=== PATIENT | female | born 1970 | race American Indian/Alaskan Native ===

== ENCOUNTER 2017-06-01 19:26 | Emergency (ER) | payer SELFPAY ==
[2017-06-01 20:17] LABS: Mean Corpuscular HGB Conc 28 % (30-34); Platelet Count 308 K/mm3 (140-440); Red Blood Count 3.81 M/mm3 (3.65-5.03); White Blood Count 4.6 K/mm3 (4.5-11.0)
[2017-06-01 20:34] LABS: Hematocrit 21.4 % (30.3-42.9); Mean Corpuscular Hemoglobin 16 pg (28-32); Mean Corpuscular Volume 56 fl (79-97); Red Cell Distribution Width 20.2 % (13.2-15.2)
[2017-06-01 20:47] LABS: Anion Gap 16 mmol/L; BUN/Creatinine Ratio 16; Blood Urea Nitrogen 11 mg/dL (7-17); Calcium 9.2 mg/dL (8.4-10.2); Carbon Dioxide 27 mmol/L (22-30); Chloride 102.7 mmol/L (98-107); Glucose 97 mg/dL (65-100); Potassium 3.9 mmol/L (3.6-5.0); Sodium 142 mmol/L (137-145)
--- NOTE | 2017-06-02 01:47 | Emergency Department Report ---
ED Dizziness HPI - General Chief Complaint: Dizziness Stated Complaint: headache,dizziness Time Seen by Provider: 06/02/17 00:56 Source: patient Mode of arrival: Ambulatory Limitations: No Limitations - History of Present Illness Initial Comments: 46-year-old female with a past medical history of iron deficiency anemia presents to the Hospital complaining of hot and cold flashes, and intermittent spinning sensation 5 days. Patient complains of frontal headache and cold symptoms. Patient was seen and evaluated at [facility] 5 days ago for same symptoms. No labs obtained. Patient denies heavy vaginal bleeding, melena, hematochezia, fever, or shortness of breath. Constant aching left-sided chest pain reported. History of blood transfusion in the past secondary to bleeding fibroids. Patient had fibroid surgery. Patient takes multivitamins with iron for iron deficiency anemia. - Related Data Previous Rx's Medication Instructions Recorded Last Taken Type Docusate Sodium [Colace] 100 mg PO BID PRN #30 capsule 06/02/17 Unknown Rx Ferrous Sulfate [Feosol 325 MG tab] 325 mg PO TID #60 tablet 06/02/17 Unknown Rx Allergies Allergy/AdvReac Type Severity Reaction Status Date / Time aspirin AdvReac Hives Verified 06/01/17 19:51 ED Review of Systems ROS: Stated complaint: headache,dizziness Other details as noted in HPI Comment: All other systems reviewed and negative Other: Constitutional: No fevers chills Eyes: No eye pain visual changes ENT: No ear pain or throat pain Neck: Denies pain Respiratory: Denies wheezing Cardiovascular: Denies palpitations, syncope GI: Denies abdominal pain, nausea, vomiting, diarrhea : Denies dysuria Musculoskeletal: Denies back pain, joint swelling Skin: Denies rash, lesions, erythema Neurologic: Denies numbness, weakness Psychiatric: Denies suicidal ideation, hallucinations ED Past Medical Hx - Past Medical History Previous Medical History?: No - Surgical History Additional Surgical History: Fribroids Removal, - Social History Smoking Status: Never Smoker Substance Use Type: None - Medications Home Medications: Home Medications Medication Instructions Recorded Confirmed Last Taken Type Docusate Sodium [Colace] 100 mg PO BID PRN #30 capsule 06/02/17 Unknown Rx Ferrous Sulfate [Feosol 325 MG tab] 325 mg PO TID #60 tablet 06/02/17 Unknown Rx ED Physical Exam - General Limitations: No Limitations - Other Other exam information: General: No limitations, patient is alert in no acute distress Head exam: Atraumatic, normocephalic Eyes exam: Normal appearance, EOMI, no nystagmus ENT: Moist mucous membrane, normal oropharynx Neck exam: Normal inspection, full range of motion, no meningismus nontender Respiratory exam: Clear to auscultation bilateral, no wheezes, rales, crackles Cardiovascular: Normal rate and rhythm, normal heart sounds Abdomen: Soft, nondistended, and nontender, with normal bowel sounds, no rebound, or guarding Rectal: Guaiac-negative brown stool Extremity: Full range of motion normal inspection no deformity Back: Normal Inspection, full range of motion, no tenderness Neurologic: Alert, oriented x3, cranial nerves intact, no motor or sensory deficit Psychiatric: normal affect, normal mood Skin: Warm, dry, intact ED Course Vital Signs 06/01/17 06/02/17 06/02/17 19:32 00:08 00:59 Temperature 98.0 F 97.6 F Pulse Rate 77 86 Respiratory 18 14 Rate Blood Pressure 115/61 133/82 O2 Sat by Pulse 100 98 100 Oximetry 06/02/17 06/02/17 06/02/17 01:01 01:15 01:35 Temperature Pulse Rate 94 H 64 Respiratory 15 16 18 Rate Blood Pressure 107/69 107/69 O2 Sat by Pulse 100 100 Oximetry ED Medical Decision Making - Lab Data Result diagrams: 06/01/17 19:55 06/01/17 19:55 Lab Results 06/01/17 06/01/17 06/01/17 Range/Units 19:55 19:55 19:55 WBC 4.6 (4.5-11.0) K/mm3 RBC 3.81 (3.65-5.03) M/mm3 Hgb 6.0 L (10.1-14.3) gm/dl Hct 21.4 L (30.3-42.9) % MCV 56 L (79-97) fl MCH 16 L (28-32) pg MCHC 28 L (30-34) % RDW 20.2 H (13.2-15.2) % Plt Count 308 (140-440) K/mm3 Lymph % (Auto) 29.8 (13.4-35.0) % [place] % (Auto) 8.9 H (0.0-7.3) % Eos % (Auto) 2.0 (0.0-4.3) % Baso % (Auto) 1.0 (0.0-1.8) % Lymph # 1.4 (1.2-5.4) K/mm3 [place] # 0.4 (0.0-0.8) K/mm3 Eos # 0.1 (0.0-0.4) K/mm3 Baso # 0.0 (0.0-0.1) K/mm3 Seg Neutrophils % 58.3 (40.0-70.0) % Seg Neutrophils # 2.6 (1.8-7.7) K/mm3 Sodium 142 (137-145) mmol/L Potassium 3.9 (3.6-5.0) mmol/L Chloride 102.7 (98-107) mmol/L Carbon Dioxide 27 (22-30) mmol/L Anion Gap 16 mmol/L BUN 11 (7-17) mg/dL Creatinine 0.7 (0.7-1.2) mg/dL Estimated GFR > 60 ml/min BUN/Creatinine Ratio 16 % Glucose 97 (65-100) mg/dL Calcium 9.2 (8.4-10.2) mg/dL HCG, Qual Negative (Negative) - EKG Data -: EKG Interpreted by Me (nsr [id number]) EKG shows normal: sinus rhythm (63), axis (qrs 74), QRS complexes, ST-T waves ( nomral) Rate: normal - Medical Decision Making Patient's significant anemia likely caused her symptoms. Patient declines blood transfusion at this time. I informed patient of the risk of further drop in hemoglobin that can result in syncope, shortness of breath, chest pain, KS, and disability. Patient is agreeable to receiving a prescription for iron pills but refuses admission and blood infusion at this time - Differential Diagnosis vertigo, anemia, URI, sinusitis Critical Care Time: No Critical care attestation.: If time is entered above; I have spent that time in minutes in the direct care of this critically ill patient, excluding procedure time. ED Disposition Clinical Impression: Symptomatic anemia, Iron deficiency anemia Disposition: DC- LEFT AGAINST MED ADVICE Is pt being admited?: No Does the pt Need Aspirin: No Condition: Stable Instructions: Iron Deficiency Anemia (ED) Additional Instructions: Admission and blood transfusion was admitted today. You have refused admission and blood transfusion at this time. Your hemoglobin is very low (6) and can continue to drop which could lead to and disability. Please return if symptoms worsen as indicated by her discharge instructions. Take iron tablets as prescribed. Follow up with her primary care doctor for further treatment Prescriptions: Docusate Sodium [Colace] 100 mg PO BID PRN #30 capsule PRN Reason: Constipation Ferrous Sulfate [Feosol 325 MG tab] 325 mg PO TID #60 tablet Referrals: PRIMARY CARE, [Primary Care Provider] - 3-5 Days FELICIA AQUINO DO [Staff Physician] - 3-5 Days (real estate utilization officer) [facility] [Provider Group] - 3-5 Days (primary care clinic ) Forms: AMA Form Time of Disposition: 01:48
[2017-06-02 02:30] VITALS: BP 117/67
== END 2017-06-02 02:30 | disposition left against medical advice (07) ==
LOC: ED 19:26
DX: D50.9 Iron deficiency anemia, unspecified (principal); Z88.6 Allergy status to analgesic agent
CPT/HCPCS: 36415; 80048; 82271; 84703; 85025; 93005; 93010; 99283

== ENCOUNTER 2017-06-01 19:28 | Emergency (ER) | payer SELFPAY | END 2017-06-01 19:58 | disposition home or self-care (01) | LOC: ED 19:28 | DX: R42 Dizziness and giddiness (principal); Z53.21 Procedure and treatment not carried out due to patient leaving prior to being seen by health care provider ==

== ENCOUNTER 2017-08-12 21:46 | Emergency (ER) | payer SELFPAY ==
[2017-08-12 22:25] VITALS: BP 102/44
[2017-08-13 01:14] LABS: Basophils # (Auto) 0.1 K/mm3 (0.0-0.1); Basophils % (Auto) 1.7 % (0.0-1.8); Eosinophils # (Auto) 0.1 K/mm3 (0.0-0.4); Eosinophils % (Auto) 2.1 % (0.0-4.3); Lymphocytes # (Auto) 2.3 K/mm3 (1.2-5.4); Lymphocytes % (Auto) 43.1 % (13.4-35.0); Mean Corpuscular HGB Conc 28 % (30-34); Monocytes # (Auto) 0.4 K/mm3 (0.0-0.8); Monocytes % (Auto) 8.1 % (0.0-7.3); Platelet Count 290 K/mm3 (140-440); Red Blood Count 4.53 M/mm3 (3.65-5.03)
[2017-08-13 01:35] LABS: Hemoglobin 7.3 gm/dl (10.1-14.3)
[2017-08-13 01:36] LABS: Hematocrit 26.4 % (30.3-42.9); Mean Corpuscular Hemoglobin 16 pg (28-32); Mean Corpuscular Volume 58 fl (79-97); Red Cell Distribution Width 23.3 % (13.2-15.2)
[2017-08-13 04:35] LABS: Alanine Aminotransferase 11 units/L (7-56); Albumin 4.3 g/dL (3.9-5); BUN/Creatinine Ratio 14; Blood Urea Nitrogen 7 mg/dL (7-17); Calcium 8.7 mg/dL (8.4-10.2); Hemolysis Index 23; Lipase 70 units/L (13-60)
== END 2017-08-13 14:30 | disposition left against medical advice (07) ==
LOC: ED 21:46
DX: R10.9 Unspecified abdominal pain (principal); R42 Dizziness and giddiness; Z53.21 Procedure and treatment not carried out due to patient leaving prior to being seen by health care provider
CPT/HCPCS: 36415; 80053; 82962; 83690; 84703; 85025; 93005; 93010

== ENCOUNTER 2017-08-14 21:49 | Emergency (ER) | payer SELFPAY ==
[2017-08-14 22:11] VITALS: BP 104/67
[2017-08-14 23:18] LABS: Basophils # (Auto) 0.1 K/mm3 (0.0-0.1); Basophils % (Auto) 1.4 % (0.0-1.8); Eosinophils # (Auto) 0.1 K/mm3 (0.0-0.4); Eosinophils % (Auto) 2.5 % (0.0-4.3); Lymphocytes # (Auto) 1.7 K/mm3 (1.2-5.4); Lymphocytes % (Auto) 34.2 % (13.4-35.0); Mean Corpuscular HGB Conc 27 % (30-34); Monocytes # (Auto) 0.5 K/mm3 (0.0-0.8); Monocytes % (Auto) 10.2 % (0.0-7.3); Platelet Count 345 K/mm3 (140-440); Red Blood Count 4.48 M/mm3 (3.65-5.03)
[2017-08-14 23:19] LABS: Hematocrit 26.1 % (30.3-42.9); Hemoglobin 7.1 gm/dl (10.1-14.3)
[2017-08-14 23:20] LABS: Mean Corpuscular Hemoglobin 16 pg (28-32); Mean Corpuscular Volume 58 fl (79-97); Red Cell Distribution Width 23.6 % (13.2-15.2)
[2017-08-14 23:27] LABS: BUN/Creatinine Ratio 18; Blood Urea Nitrogen 11 mg/dL (7-17); Hemolysis Index 4
== END 2017-08-15 06:30 | disposition left against medical advice (07) ==
LOC: ED 21:49
DX: R42 Dizziness and giddiness (principal); Z53.21 Procedure and treatment not carried out due to patient leaving prior to being seen by health care provider
CPT/HCPCS: 36415; 80048; 85025; 93005; 93010

== ENCOUNTER 2021-12-03 23:01 | Emergency (ER) | payer SELFPAY ==
[2021-12-04 00:18] VITALS: BP 127/82
== END 2021-12-04 05:30 | disposition left against medical advice (07) ==
LOC: ED 23:01
DX: R07.89 Other chest pain (principal); Z53.21 Procedure and treatment not carried out due to patient leaving prior to being seen by health care provider

== ENCOUNTER 2021-12-04 19:05 | Emergency (ER) | payer SELFPAY ==
[2021-12-05] MEDS ORDERED: ACETAMINOPHEN 500 MG TAB PO ONE (04:19)
[2021-12-05 04:38] LABS: Eosinophils # (Auto) 0.1 K/mm3 (0.0-0.4); Eosinophils % (Auto) 2.7 % (0.0-4.3); Lymphocytes # (Auto) 1.8 K/mm3 (1.2-5.4); Lymphocytes % (Auto) 51.4 % (13.4-35.0); Mean Corpuscular HGB Conc 32 % (30-34); Mean Corpuscular Volume 91 fl (79-97); Monocytes # (Auto) 0.3 K/mm3 (0.0-0.8); Monocytes % (Auto) 9.6 % (0.0-7.3); Platelet Count 202 K/mm3 (140-440); Red Blood Count 4.18 M/mm3 (3.65-5.03); Red Cell Distribution Width 14.5 % (13.2-15.2)
[2021-12-05 05:00] LABS: Alanine Aminotransferase 13 units/L (7-56); Albumin 4.4 g/dL (3.9-5); Blood Urea Nitrogen 10 mg/dL (7-17); Calcium 9.7 mg/dL (8.4-10.2); Hemolysis Index 10
[2021-12-05 05:05] LABS: BUN/Creatinine Ratio 14
[2021-12-05 05:17] LABS: Bacteria,Urine 1+ /HPF (Negative); Bilirubin,Urine NEG (Negative); Blood,Urine NEG (Negative); Color,Urine Yellow (Yellow); Mucus,Urine 3+ /HPF; Protein,Urine <15 mg/dL mg/dL (Negative)
--- NOTE | 2021-12-05 05:55 | Emergency Department Report ---
ED General Adult HPI - General Chief complaint: Headache Stated complaint: LOSS APPETITE/HEADACHE/CP /BACK PAIN/DIZZY Source: patient Mode of arrival: Ambulatory Limitations: No Limitations - History of Present Illness Initial comments: Patient is a 51-year-old -L[place] female with no past medical history presents to the ED with complaint of acute onset persistent intermittent lower abdominal pain, urinary frequency and urgency and headache for the last 1 week. Patient denies dizziness, syncope, nausea and vomiting, vaginal bleeding, vaginal discharge, dysuria, low back pain, chest pain or shortness of breath. MD Complaint: Mild lower abdominal pain; headache, -: Gradual (2), week(s) (1) Location: abdomen (LOWER) Radiation: non-radiation Severity scale (0 -10): 5 Quality: aching Consistency: constant Improves with: none Worsens with: none Associated Symptoms: denies other symptoms. denies: confusion, chest pain, cough, diaphoresis, headaches, loss of appetite, malaise, nausea/vomiting, shortness of breath, syncope, weakness Treatments Prior to Arrival: none - Related Data Previous Rx's Medication Instructions Recorded Last Taken Type Docusate Sodium [Colace] 100 mg PO BID PRN #30 capsule 06/02/17 Unknown Rx Ferrous Sulfate [Feosol 325 MG tab] 325 mg PO TID #60 tablet 06/02/17 Unknown Rx Acetaminophen [Tylenol] 500 mg PO Q6HR PRN #24 tablet 12/05/21 Unknown Rx Sulfamethoxazole/Trimethoprim 1 each PO Q12H #20 tab 12/05/21 Unknown Rx [Bactrim DS TAB] Allergies Allergy/AdvReac Type Severity Reaction Status Date / Time aspirin AdvReac Hives Verified 06/01/17 19:51 ED Review of Systems ROS: Stated complaint: LOSS APPETITE/HEADACHE/CP /BACK PAIN/DIZZY Other details as noted in HPI Constitutional: denies: chills, fever Eyes: denies: eye pain, eye discharge, vision change ENT: denies: ear pain, throat pain Respiratory: denies: cough, shortness of breath, wheezing Cardiovascular: denies: chest pain, palpitations Endocrine: no symptoms reported Gastrointestinal: abdominal pain (LOWER). denies: nausea, vomiting, diarrhea, constipation, hematemesis Genitourinary: urgency, frequency. denies: dysuria, discharge Musculoskeletal: denies: back pain, joint swelling, arthralgia Skin: denies: rash, lesions Neurological: denies: headache, weakness, paresthesias Psychiatric: denies: anxiety, depression Hematological/Lymphatic: denies: easy bleeding, easy bruising ED Past Medical Hx - Past Medical History Previous Medical History?: No - Surgical History Past Surgical History?: Yes Additional Surgical History: Fibroidectomy - Social History Smoking Status: Never Smoker Substance Use Type: None - Medications Home Medications: Home Medications Medication Instructions Recorded Confirmed Last Taken Type Docusate Sodium [Colace] 100 mg PO BID PRN #30 capsule 06/02/17 Unknown Rx Ferrous Sulfate [Feosol 325 MG tab] 325 mg PO TID #60 tablet 06/02/17 Unknown Rx Acetaminophen [Tylenol] 500 mg PO Q6HR PRN #24 tablet 12/05/21 Unknown Rx Sulfamethoxazole/Trimethoprim 1 each PO Q12H #20 tab 12/05/21 Unknown Rx [Bactrim DS TAB] ED Physical Exam - General Limitations: No Limitations General appearance: alert, in no apparent distress - Head Head exam: Present: atraumatic, normocephalic, normal inspection - Eye Eye exam: Present: normal appearance, PERRL, EOMI Pupils: Present: normal accommodation - ENT ENT exam: Present: normal exam, normal orophraynx, mucous membranes moist, TM's normal bilaterally, normal external ear exam - Neck Neck exam: Present: normal inspection, full ROM. Absent: tenderness - Respiratory Respiratory exam: Present: normal lung sounds bilaterally. Absent: respiratory distress, wheezes, rales, rhonchi, chest wall tenderness, accessory muscle use, decreased breath sounds, prolonged expiratory - Cardiovascular Cardiovascular Exam: Present: regular rate, normal rhythm, normal heart sounds. Absent: systolic murmur, diastolic murmur, rubs, gallop - GI/Abdominal GI/Abdominal exam: Present: soft, normal bowel sounds. Absent: tenderness, rebound, hyperactive bowel sounds, hypoactive bowel sounds, organomegaly - Extremities Exam Extremities exam: Present: normal inspection, full ROM, normal capillary refill - Back Exam Back exam: Present: normal inspection, full ROM. Absent: tenderness, muscle spasm, paraspinal tenderness - Neurological Exam Neurological exam: Present: alert, oriented X3, CN II-XII intact, normal gait, reflexes normal - Psychiatric Psychiatric exam: Present: normal affect, normal mood, anxious - Skin Skin exam: Present: warm, dry, intact, normal color. Absent: rash ED Course Vital Signs 12/04/21 12/05/21 20:37 04:29 Temperature 98.9 F Pulse Rate 85 Respiratory 16 18 Rate Blood Pressure 119/76 O2 Sat by Pulse 99 Oximetry ED Medical Decision Making - Lab Data Result diagrams: 12/05/21 04:25 12/05/21 04:25 - Medical Decision Making This is a 51-year-old -L[place] female with no past medical history presents to the ED with complaint of acute onset persistent intermittent lower abdominal pain, urinary frequency and urgency and headache for the last 1 week. In the ED, patient is alert and oriented x3 and is not in any distress. Patient was treated for pain in the ED. Lab test results were reviewed and are all nonactionable except for urinalysis that showed significant urinary tract infection. Patient was therefore discharged home on medications and advised to follow-up with her primary care physician in 7 to 10 days for reevaluation or return to the ED immediately if symptoms get worse. - Differential Diagnosis UTI; muscle strain; uterine fibroids; constipation; Critical care attestation.: If time is entered above; I have spent that time in minutes in the direct care of this critically ill patient, excluding procedure time. ED Disposition Clinical Impression: Acute urinary tract infection Abdominal pain Qualifiers: Abdominal location: lower abdomen, unspecified Qualified Code(s): R10.30 - Lower abdominal pain, unspecified Tension type headache Qualifiers: Headache chronicity pattern: acute headache Intractability: not intractable Qualified Code(s): G44.209 - Tension-type headache, unspecified, not intractable Disposition: 01 HOME / SELF CARE / HOMELESS Is pt being admited?: No Does the pt Need Aspirin: No Condition: Stable Instructions: Abdominal Pain, Adult, [id number], Urinary Tract Infection, Adult, [id number], Tension Headache, Adult, [id number] Additional Instructions: All lab test results were reviewed and are all nonactionable. Urinalysis however showed acute urinary tract infection. Therefore take medication with food, drink plenty of fluids and follow-up with your primary care physician in 7 to 10 days for reevaluation. Return to the ED immediately if symptoms get worse. Prescriptions: Acetaminophen [Tylenol] 500 mg PO Q6HR PRN #24 tablet PRN Reason: Pain , Severe (7-10) Sulfamethoxazole/Trimethoprim [Bactrim DS TAB] 1 each PO Q12H #20 tab Referrals: [facility] [Provider Group] - 7-10 days Time of Disposition: 05:53 Print Language: ITALIAN
[2021-12-05 07:04] VITALS: BP 122/71
== END 2021-12-05 07:02 | disposition home or self-care (01) ==
LOC: ED 19:05
DX: N39.0 Urinary tract infection, site not specified (principal); G44.209 Tension-type headache, unspecified, not intractable; R10.30 Lower abdominal pain, unspecified; Z88.6 Allergy status to analgesic agent; Z88.5 Allergy status to narcotic agent; Z79.899 Other long term (current) drug therapy
CPT/HCPCS: 36415; 80053; 81001; 84703; 85025; 87086; 99283

== ENCOUNTER 2021-12-05 18:14 | Emergency (ER) | payer SELFPAY ==
[2021-12-05 20:54] VITALS: BP 115/69
== END 2021-12-06 01:00 | disposition left against medical advice (07) ==
LOC: ED 18:14
DX: R68.83 Chills (without fever) (principal); R51.9 Headache, unspecified; Z53.21 Procedure and treatment not carried out due to patient leaving prior to being seen by health care provider

== ENCOUNTER 2021-12-06 21:26 | Emergency (ER) | payer SELFPAY ==
[2021-12-06 23:19] VITALS: BP 145/88
== END 2021-12-07 08:25 | disposition left against medical advice (07) ==
LOC: ED 21:26
DX: R51.9 Headache, unspecified (principal); Z53.21 Procedure and treatment not carried out due to patient leaving prior to being seen by health care provider

== ENCOUNTER 2021-12-07 20:05 | Emergency (ER) | payer SELFPAY ==
[2021-12-08] MEDS ORDERED: dexAMETHasone 20 MG/5 ML VIAL IM ONE (01:01)
[2021-12-08] MEDS ORDERED: METOCLOPRAMIDE 10 MG TAB PO ONE (01:01)
[2021-12-08] MEDS ORDERED: diphenhydrAMINE 25 MG CAP PO ONE (01:01)
[2021-12-08] MEDS ORDERED: ACETAMINOPHEN 500 MG TAB PO ONE (01:01)
--- NOTE | 2021-12-08 02:46 | Emergency Department Report ---
ED Headache HPI - General Chief Complaint: Headache Stated Complaint: HEADACHE Time Seen by Provider: 12/08/21 01:00 - History of Present Illness Initial Comments: Patient 51-year-old female with history of headaches who presents with generalized body aches and headaches for the past 3 days intermittently. Pain max is 7/10. Pain is 4/10 today. There is some photophobia and nausea. However no fevers or chills. Patient denies other medical history. Allergies/Adverse Reactions: Allergies aspirin Adverse Reaction (Verified 12/06/21 23:19) Hives codeine Adverse Reaction (Verified 12/06/21 23:19) Unknown Home Medications: Ambulatory Orders Docusate Sodium [Colace] 100 mg PO BID PRN #30 capsule 06/02/17 Ferrous Sulfate [Feosol 325 MG tab] 325 mg PO TID #60 tablet 06/02/17 Sulfamethoxazole/Trimethoprim [Bactrim DS TAB] 1 each PO Q12H #20 tab 12/05/21 Acetaminophen [Acetaminophen TAB] 500 mg PO Q6HR PRN #24 tablet 12/08/21 diphenhydrAMINE [Benadryl CAP] 25 mg PO Q8HR PRN #30 capsule 12/08/21 ED Review of Systems ROS: Stated complaint: HEADACHE Other details as noted in HPI Comment: Unobtainable due to pts medical conditions Constitutional: no symptoms reported Eyes: denies: eye pain, eye discharge, vision change ENT: denies: ear pain, throat pain Respiratory: denies: cough, shortness of breath, wheezing Cardiovascular: denies: chest pain, palpitations Endocrine: no symptoms reported Gastrointestinal: abdominal pain, nausea. denies: vomiting, diarrhea, constipation, hematemesis, melena Genitourinary: denies: urgency, dysuria, frequency, hematuria, discharge Musculoskeletal: denies: back pain Skin: denies: rash, lesions Neurological: denies: headache, weakness, paresthesias, vertigo Psychiatric: denies: anxiety, depression Hematological/Lymphatic: as per HPI ED Past Medical Hx - Past Medical History Additional medical history: fibroids - Surgical History Additional Surgical History: Fibroidectomy - Social History Smoking Status: Never Smoker Substance Use Type: None - Medications Home Medications: Home Medications Medication Instructions Recorded Confirmed Last Taken Type Docusate Sodium [Colace] 100 mg PO BID PRN #30 capsule 06/02/17 Unknown Rx Ferrous Sulfate [Feosol 325 MG tab] 325 mg PO TID #60 tablet 06/02/17 Unknown Rx Sulfamethoxazole/Trimethoprim 1 each PO Q12H #20 tab 12/05/21 Unknown Rx [Bactrim DS TAB] Acetaminophen [Acetaminophen TAB] 500 mg PO Q6HR PRN #24 tablet 12/08/21 Unknown Rx diphenhydrAMINE [Benadryl CAP] 25 mg PO Q8HR PRN #30 capsule 12/08/21 Unknown Rx ED Physical Exam - General Limitations: No Limitations General appearance: alert, in no apparent distress - Head Head exam: Present: normocephalic, normal inspection - Eye Eye exam: Present: normal appearance, EOMI Pupils: Present: normal accommodation - ENT ENT exam: Present: normal exam, normal orophraynx, mucous membranes moist - Neck Neck exam: Present: normal inspection, tenderness, full ROM. Absent: lymphadenopathy - Respiratory Respiratory exam: Present: normal lung sounds bilaterally. Absent: respiratory distress, wheezes, stridor, chest wall tenderness - Cardiovascular Cardiovascular Exam: Present: regular rate, normal rhythm, normal heart sounds. Absent: systolic murmur, diastolic murmur, rubs, gallop - GI/Abdominal GI/Abdominal exam: Present: soft, normal bowel sounds, organomegaly. Absent: distended, guarding - Rectal Rectal exam: Present: deferred - Extremities Exam Extremities exam: Present: normal inspection, full ROM, normal capillary refill. Absent: tenderness - Back Exam Back exam: Present: normal inspection, full ROM. Absent: CVA tenderness (L) - Neurological Exam Neurological exam: Present: alert, oriented X3, CN II-XII intact, normal gait, reflexes normal - Psychiatric Psychiatric exam: Present: normal affect, normal mood - Skin Skin exam: Present: warm, dry, intact, normal color. Absent: rash ED Course Vital Signs 12/07/21 12/08/21 20:25 01:22 Temperature 98.4 F Pulse Rate 69 Respiratory 18 16 Rate Blood Pressure 112/72 O2 Sat by Pulse 100 Oximetry ED Medical Decision Making - Medical Decision Making Symptoms are improved with medications given in ED plan DC to home, follow-up with your doctor in 2 to 3 days. Return to emergency department should symptoms worsen. Critical care attestation.: If time is entered above; I have spent that time in minutes in the direct care of this critically ill patient, excluding procedure time. ED Disposition Clinical Impression: Headache Qualifiers: Headache type: unspecified Headache chronicity pattern: acute headache Intractability: intractable Qualified Code(s): R51.9 - Headache, unspecified URI (upper respiratory infection) Qualifiers: URI type: acute pharyngitis Pharyngitis/tonsillitis etiology: unspecified etiology Qualified Code(s): J02.9 - Acute pharyngitis, unspecified Disposition: 01 HOME / SELF CARE / HOMELESS Is pt being admited?: No Does the pt Need Aspirin: No Condition: Stable Instructions: Viral Respiratory Infection Additional Instructions: Take medications as prescribed, follow-up with your doctor in 2 to 3 days. Return to emergency department should symptoms worsen. Prescriptions: Acetaminophen [Acetaminophen TAB] 500 mg PO Q6HR PRN #24 tablet PRN Reason: Pain , Severe (7-10) diphenhydrAMINE [Benadryl CAP] 25 mg PO Q8HR PRN #30 capsule PRN Reason: nause and vomiting Referrals: LIONEL HAMPTON MD [Staff Physician] - 3-5 Days Forms: Work/School Release Form(ED) Time of Disposition: 02:57
[2021-12-08 03:08] VITALS: BP 108/70
== END 2021-12-08 03:49 | disposition home or self-care (01) ==
LOC: ED 20:05
DX: J06.9 Acute upper respiratory infection, unspecified (principal); R51.9 Headache, unspecified
CPT/HCPCS: 96372; 99282; J1100

== ENCOUNTER 2021-12-10 20:08 | Emergency (ER) | payer SELFPAY ==
[2021-12-10 21:08] VITALS: BP 131/56
== END 2021-12-10 22:00 ==
LOC: ED 20:08
DX: R42 Dizziness and giddiness (principal); R11.10 Vomiting, unspecified; R51.9 Headache, unspecified; Z53.21 Procedure and treatment not carried out due to patient leaving prior to being seen by health care provider

== ENCOUNTER 2021-12-15 21:53 | Emergency (ER) | payer SELFPAY ==
[2021-12-16 00:06] VITALS: BP 123/79
== END 2021-12-16 11:37 ==
LOC: ED 21:53
DX: R50.9 Fever, unspecified (principal); R51.9 Headache, unspecified; Z53.21 Procedure and treatment not carried out due to patient leaving prior to being seen by health care provider

== ENCOUNTER 2021-12-16 21:52 | Emergency (ER) | payer SELFPAY ==
[2021-12-16 22:54] VITALS: BP 113/64
== END 2021-12-16 23:45 | disposition left against medical advice (07) ==
LOC: ED 21:52
DX: R51.9 Headache, unspecified (principal); Z53.21 Procedure and treatment not carried out due to patient leaving prior to being seen by health care provider

== ENCOUNTER 2021-12-24 21:42 | Emergency (ER) | payer SELFPAY ==
[2021-12-24 23:29] VITALS: BP 114/66
[2021-12-25] LABS: Bilirubin,Urine NEG (Negative); Blood,Urine NEG (Negative); Color,Urine Yellow (Yellow); Mucus,Urine FEW /HPF; Protein,Urine <15 mg/dL mg/dL (Negative); RBC,Urine < 1.0 /HPF (0.0-6.0); Urobilinogen,Urine < 2.0 mg/dL (<2.0)
== END 2021-12-25 04:00 | disposition left against medical advice (07) ==
LOC: ED 21:42
DX: R10.9 Unspecified abdominal pain (principal); R19.7 Diarrhea, unspecified; Z53.21 Procedure and treatment not carried out due to patient leaving prior to being seen by health care provider
CPT/HCPCS: 81001

== ENCOUNTER 2021-12-28 20:21 | Emergency (ER) | payer SELFPAY ==
[2021-12-28 20:27] VITALS: BP 96/58
[2021-12-29 00:46] LABS: Basophils % (Auto) 0.7 % (0.0-1.8); Eosinophils # (Auto) 0.1 K/mm3 (0.0-0.4); Eosinophils % (Auto) 1.9 % (0.0-4.3); Hemoglobin 12.1 gm/dl (10.1-14.3); Lymphocytes # (Auto) 1.6 K/mm3 (1.2-5.4); Lymphocytes % (Auto) 35.3 % (13.4-35.0); Mean Corpuscular HGB Conc 34 % (30-34); Mean Corpuscular Volume 88 fl (79-97); Monocytes # (Auto) 0.5 K/mm3 (0.0-0.8); Monocytes % (Auto) 12.2 % (0.0-7.3); Platelet Count 200 K/mm3 (140-440); Red Blood Count 4.08 M/mm3 (3.65-5.03); Red Cell Distribution Width 14.6 % (13.2-15.2)
[2021-12-29 01:08] LABS: Alanine Aminotransferase 12 units/L (7-56); Albumin 4.5 g/dL (3.9-5); BUN/Creatinine Ratio 29; Blood Urea Nitrogen 23 mg/dL (7-17); Calcium 9.9 mg/dL (8.4-10.2); Hemolysis Index 6
[2021-12-29 01:09] LABS: Bilirubin,Direct < 0.2 mg/dL (0-0.2)
== END 2021-12-28 22:05 | disposition left against medical advice (07) ==
LOC: ED 20:21
DX: R10.9 Unspecified abdominal pain (principal); Z53.21 Procedure and treatment not carried out due to patient leaving prior to being seen by health care provider
CPT/HCPCS: 36415

== ENCOUNTER 2021-12-29 22:32 | Emergency (ER) | payer SELFPAY ==
[2021-12-30 01:08] VITALS: BP 124/62
== END 2021-12-30 15:31 | disposition left against medical advice (07) ==
LOC: ED 22:32
DX: R10.9 Unspecified abdominal pain (principal); R50.9 Fever, unspecified; Z53.21 Procedure and treatment not carried out due to patient leaving prior to being seen by health care provider

== ENCOUNTER 2022-01-03 20:12 | Emergency (ER) | payer SELFPAY ==
[2022-01-04 02:49] VITALS: BP 113/69
== END 2022-01-03 23:00 ==
LOC: ED 20:12
DX: R51.9 Headache, unspecified (principal); Z53.21 Procedure and treatment not carried out due to patient leaving prior to being seen by health care provider

== ENCOUNTER 2022-01-15 19:24 | Emergency (ER) | payer SELFPAY ==
[2022-01-15 20:29] VITALS: BP 94/56
--- NOTE | 2022-01-16 06:55 | Emergency Department Report ---
ED Female HPI - General Chief complaint: Urogenital-Female Stated complaint: DIZZY/HEADACHE Time Seen by Provider: 01/16/22 06:48 Source: patient Mode of arrival: Ambulatory Limitations: No Limitations - History of Present Illness Initial comments: 51-year-old female presents emergency department complaining of uterine swelling of unknown etiology although she does report being . States that although she is she is not sure why her uterus is swelling and she is also has been having some discharge that she would like to have addressed as well. Reports no fever, chills, sweats. No hemoptysis no hematemesis hematochezia, no diarrhea, no constipation, no pelvic trauma. She is not yet follow-up with an OPERATIONS PROGRAM MANAGER but is due to do so in the next few days. MD Complaint: vaginal discharge Location: suprapubic Radiation: suprapubic Severity: mild Consistency: constant Improves with: none Are you Now?: Yes - Related Data Previous Rx's Medication Instructions Recorded Last Taken Type Docusate Sodium [Colace] 100 mg PO BID PRN #30 capsule 06/02/17 Unknown Rx Ferrous Sulfate [Feosol 325 MG tab] 325 mg PO TID #60 tablet 06/02/17 Unknown Rx Sulfamethoxazole/Trimethoprim 1 each PO Q12H #20 tab 12/05/21 Unknown Rx [Bactrim DS TAB] Acetaminophen [Acetaminophen TAB] 500 mg PO Q6HR PRN #24 tablet 12/08/21 Unknown Rx Metoclopramide [Reglan] 10 mg PO TID #1 tab 12/08/21 Unknown Rx diphenhydrAMINE [Benadryl CAP] 25 mg PO Q8HR PRN #30 capsule 12/08/21 Unknown Rx clindamycin HCL [Clindamycin cap] 75 mg PO TID #21 cap 01/16/22 Unknown Rx Allergies Allergy/AdvReac Type Severity Reaction Status Date / Time cephalexin [From Keflex] Allergy Unknown Verified 12/10/21 03:26 doxycycline Allergy Dizziness Verified 12/28/21 20:26 aspirin AdvReac Hives Verified 12/06/21 23:19 codeine AdvReac Unknown Verified 12/06/21 23:19 ED Review of Systems ROS: Stated complaint: DIZZY/HEADACHE Other details as noted in HPI Comment: All other systems reviewed and negative ED Past Medical Hx - Past Medical History Additional medical history: fibroids - Surgical History Additional Surgical History: Fibroidectomy - Social History Smoking Status: Never Smoker Substance Use Type: None - Medications Home Medications: Home Medications Medication Instructions Recorded Confirmed Last Taken Type Docusate Sodium [Colace] 100 mg PO BID PRN #30 capsule 06/02/17 Unknown Rx Ferrous Sulfate [Feosol 325 MG tab] 325 mg PO TID #60 tablet 06/02/17 Unknown Rx Sulfamethoxazole/Trimethoprim 1 each PO Q12H #20 tab 12/05/21 Unknown Rx [Bactrim DS TAB] Acetaminophen [Acetaminophen TAB] 500 mg PO Q6HR PRN #24 tablet 12/08/21 Unknown Rx Metoclopramide [Reglan] 10 mg PO TID #1 tab 12/08/21 Unknown Rx diphenhydrAMINE [Benadryl CAP] 25 mg PO Q8HR PRN #30 capsule 12/08/21 Unknown Rx clindamycin HCL [Clindamycin cap] 75 mg PO TID #21 cap 01/16/22 Unknown Rx ED Physical Exam - General Limitations: No Limitations General appearance: alert, in no apparent distress - Head Head exam: Present: atraumatic, normocephalic - Eye Eye exam: Present: normal appearance, PERRL, EOMI Pupils: Present: normal accommodation - ENT ENT exam: Present: normal exam, normal orophraynx, mucous membranes moist, TM's normal bilaterally - Neck Neck exam: Present: normal inspection, full ROM - Respiratory Respiratory exam: Present: normal lung sounds bilaterally, chest wall tenderness. Absent: respiratory distress, wheezes, rales, rhonchi - Cardiovascular Cardiovascular Exam: Present: regular rate, normal rhythm. Absent: systolic murmur, diastolic murmur, rubs, gallop - GI/Abdominal GI/Abdominal exam: Present: soft, normal bowel sounds. Absent: distended, tenderness - Extremities Exam Extremities exam: Present: normal inspection - Back Exam Back exam: Present: normal inspection. Absent: CVA tenderness (R), CVA tenderness (L) - Neurological Exam Neurological exam: Present: alert, oriented X3, CN II-XII intact - Psychiatric Psychiatric exam: Present: normal affect, normal mood - Skin Skin exam: Present: warm, dry, intact, normal color. Absent: rash ED Course Vital Signs 01/15/22 19:36 Temperature 98.5 F Pulse Rate 81 Respiratory 18 Rate Blood Pressure 94/56 O2 Sat by Pulse 98 Oximetry ED Medical Decision Making - Medical Decision Making The patient is oriented to person, place, and time, has the capacity to make decisions regarding the medical care offered. The patient speaks coherently and exhibits no evidence of having an altered level of consciousness or alcohol or drug intoxication to a point that would impair judgment. They respond knowingly to questions about recommended treatment and alternate treatments including no further testing or treatment; participate in diagnostic and treatment decisions by means of rational thought processes; and understand the items of minimum basic medical treatment information with respect to that treatment (the nature and seriousness of the illness, the nature of the treatment, the probable degree and duration of any benefits and risks of any medical intervention that is being recommended, and the consequences of lack of treatment, and the nature, risks, and benefits of any reasonable alternatives). I have reviewed the relevant issues with the patient. They are aware of the suspected diagnosis suggested by screening exam, associated complications, based upon the initiated medical screening exam. The patient acknowledges understanding of the reasons for recommendations regarding medical treatment, medical testing, and further monitoring and observation. The recommended medical care being refused has been discussed with the patient and is labs to evaluate , ultrasound, vaginal swabs/urine. The risks of refusing recommended care that were disclosed and acknowledged by the patient are loss of current lifestyle, permanent mental impairment, and . The patient understands the relevant information of the nature of their medical condition, as well as the risks, benefits, and treatment alternatives (including non-treatment), consequences of refusing care, and can competently communicate a rational explanation about their choice of care options. [Discharge instructions were provided to the patient.] The patient understands they are welcome to return to the hospital at any time to receive the recommended care or any other care at any time, regardless of their ability to pay for such care. Critical care attestation.: If time is entered above; I have spent that time in minutes in the direct care of this critically ill patient, excluding procedure time. ED Disposition Clinical Impression: Unconfirmed , Vaginitis Disposition: HOME / SELF CARE / HOMELESS Is pt being admited?: No Does the pt Need Aspirin: No Condition: Stable Instructions: Vaginitis Prescriptions: clindamycin HCL [Clindamycin cap] 75 mg PO TID #21 cap Forms: AMA Form
== END 2022-01-16 19:00 | disposition home or self-care (01) ==
LOC: ED 19:24
DX: N76.0 Acute vaginitis (principal); Z32.00 Encounter for pregnancy test, result unknown; Z88.6 Allergy status to analgesic agent; Z91.09 Other allergy status, other than to drugs and biological substances; Z79.899 Other long term (current) drug therapy
CPT/HCPCS: 99281

== ENCOUNTER 2022-01-20 22:54 | Emergency (ER) | payer SELFPAY ==
[2022-01-20 23:09] VITALS: BP 132/77
== END 2022-01-21 16:40 | disposition left against medical advice (07) ==
LOC: ED 22:54
DX: R51.9 Headache, unspecified (principal); R42 Dizziness and giddiness; Z53.21 Procedure and treatment not carried out due to patient leaving prior to being seen by health care provider

== ENCOUNTER 2022-01-21 21:27 | Emergency (ER) | payer SELFPAY ==
[2022-01-21 21:49] VITALS: BP 118/56
== END 2022-01-22 05:00 | disposition left against medical advice (07) ==
LOC: ED 21:27
DX: R51.9 Headache, unspecified (principal); R42 Dizziness and giddiness; R10.9 Unspecified abdominal pain; Z53.21 Procedure and treatment not carried out due to patient leaving prior to being seen by health care provider
CPT/HCPCS: 36415; 84702

== ENCOUNTER 2022-01-26 19:50 | Emergency (ER) | payer SELFPAY ==
--- NOTE | 2022-01-27 02:34 | XRay Report ---
CHEST 2 VIEWS INDICATION: fever, chills. COMPARISON: None. FINDINGS: Support devices: None. Heart: Within normal limits. Lungs/Pleura: No acute air space or interstitial disease. No significant pleural effusion. IMPRESSION: No acute findings. Signer Name: Adan Rocha MD Signed: 01/27/2022 2:30 AM Workstation Name: [id number]
[2022-01-27 05:01] LABS: Bilirubin,Urine Negative (Negative); Blood,Urine Negative (Negative); Color,Urine Yellow (Yellow); Urobilinogen,Urine 0.2 mg/dL (<2.0)
--- NOTE | 2022-01-27 05:11 | Emergency Department Report ---
ED General Adult HPI - General Chief complaint: Fever Stated complaint: FEVER CHILS Source: patient Mode of arrival: Ambulatory Limitations: No Limitations - History of Present Illness Initial comments: Patient is a 51-year-old -[place] female with a history of chronic uterine fibroids who presents to the ED with complaint of acute onset persistent diffuse body aches and pains, nasal congestion, mild dry cough for the last 2 days. Patient also complains of intermittent subjective fever and chills for which she has been taking [id number] antipyretics. Patient states that the last time she took antipyretic was 2 hours prior to arrival in the ED. Patient states that no one else at home is had similar symptoms. Patient denies dizziness, syncope, chest pain, shortness of breath, abdominal pain, sore throat, dysuria, urinary frequency and urgency, change in vision, or back pain. MD Complaint: Diffuse body aches and pains, subjective intermittent fever -: days(s) (2) Location: head Radiation: non-radiation Severity scale (0 -10): 5 Quality: aching, sharp Consistency: constant Improves with: medication Worsens with: none Associated Symptoms: denies other symptoms, cough, fever/chills, headaches, loss of appetite, malaise. denies: confusion, chest pain, diaphoresis, nausea/vomiting, rash, seizure, shortness of breath, syncope, weakness Treatments Prior to Arrival: NSAID - Related Data Previous Rx's Medication Instructions Recorded Last Taken Type Docusate Sodium [Colace] 100 mg PO BID PRN #30 capsule 06/02/17 Unknown Rx Ferrous Sulfate [Feosol 325 MG tab] 325 mg PO TID #60 tablet 06/02/17 Unknown Rx Sulfamethoxazole/Trimethoprim 1 each PO Q12H #20 tab 12/05/21 Unknown Rx [Bactrim DS TAB] Acetaminophen [Acetaminophen TAB] 500 mg PO Q6HR PRN #24 tablet 12/08/21 Unknown Rx Metoclopramide [Reglan] 10 mg PO TID #1 tab 12/08/21 Unknown Rx diphenhydrAMINE [Benadryl CAP] 25 mg PO Q8HR PRN #30 capsule 12/08/21 Unknown Rx clindamycin HCL [Clindamycin cap] 75 mg PO TID #21 cap 01/16/22 Unknown Rx Acetaminophen [Tylenol] 500 mg PO Q6HR PRN #30 tablet 01/27/22 Unknown Rx Allergies Allergy/AdvReac Type Severity Reaction Status Date / Time cephalexin [From Keflex] Allergy Unknown Verified 12/10/21 03:26 doxycycline Allergy Dizziness Verified 12/28/21 20:26 aspirin AdvReac Hives Verified 12/06/21 23:19 codeine AdvReac Unknown Verified 12/06/21 23:19 ED Review of Systems ROS: Stated complaint: FEVER CHILS Other details as noted in HPI Constitutional: chills, fever, malaise, weakness Eyes: denies: eye pain, eye discharge, vision change ENT: congestion. denies: ear pain, throat pain Respiratory: cough. denies: shortness of breath, wheezing Cardiovascular: denies: chest pain, palpitations Endocrine: no symptoms reported Gastrointestinal: denies: abdominal pain, nausea, vomiting, diarrhea Genitourinary: denies: urgency, dysuria, discharge Musculoskeletal: arthralgia, myalgia. denies: back pain, joint swelling Skin: denies: rash, lesions Neurological: headache. denies: weakness, paresthesias Psychiatric: denies: anxiety, depression Hematological/Lymphatic: denies: easy bleeding, easy bruising ED Past Medical Hx - Past Medical History Previous Medical History?: Yes Additional medical history: fibroids - Surgical History Past Surgical History?: Yes Additional Surgical History: Fibroidectomy - Social History Smoking Status: Current Every Day Smoker - Medications Home Medications: Home Medications Medication Instructions Recorded Confirmed Last Taken Type Docusate Sodium [Colace] 100 mg PO BID PRN #30 capsule 06/02/17 Unknown Rx Ferrous Sulfate [Feosol 325 MG tab] 325 mg PO TID #60 tablet 06/02/17 Unknown Rx Sulfamethoxazole/Trimethoprim 1 each PO Q12H #20 tab 12/05/21 Unknown Rx [Bactrim DS TAB] Acetaminophen [Acetaminophen TAB] 500 mg PO Q6HR PRN #24 tablet 12/08/21 Unknown Rx Metoclopramide [Reglan] 10 mg PO TID #1 tab 12/08/21 Unknown Rx diphenhydrAMINE [Benadryl CAP] 25 mg PO Q8HR PRN #30 capsule 12/08/21 Unknown Rx clindamycin HCL [Clindamycin cap] 75 mg PO TID #21 cap 01/16/22 Unknown Rx Acetaminophen [Tylenol] 500 mg PO Q6HR PRN #30 tablet 01/27/22 Unknown Rx ED Physical Exam - General Limitations: No Limitations General appearance: alert, in no apparent distress - Head Head exam: Present: atraumatic, normocephalic, normal inspection - Eye Eye exam: Present: normal appearance, PERRL, EOMI Pupils: Present: normal accommodation - ENT ENT exam: Present: normal exam, normal orophraynx, mucous membranes moist, TM's normal bilaterally, normal external ear exam - Neck Neck exam: Present: normal inspection, full ROM. Absent: tenderness - Respiratory Respiratory exam: Present: normal lung sounds bilaterally. Absent: respiratory distress, wheezes, rales, chest wall tenderness, accessory muscle use, decreased breath sounds, prolonged expiratory - Cardiovascular Cardiovascular Exam: Present: regular rate, normal rhythm, normal heart sounds. Absent: systolic murmur, diastolic murmur, rubs, gallop - GI/Abdominal GI/Abdominal exam: Present: soft, normal bowel sounds. Absent: tenderness, guarding, rebound, hyperactive bowel sounds, hypoactive bowel sounds, organomegaly - Extremities Exam Extremities exam: Present: normal inspection, full ROM, normal capillary refill. Absent: tenderness - Back Exam Back exam: Present: normal inspection, full ROM. Absent: tenderness, CVA tenderness (R), CVA tenderness (L), muscle spasm, paraspinal tenderness, vertebral tenderness - Neurological Exam Neurological exam: Present: alert, oriented X3, CN II-XII intact, normal gait, reflexes normal - Psychiatric Psychiatric exam: Present: normal affect, normal mood - Skin Skin exam: Present: warm, dry, intact, normal color. Absent: rash ED Course Vital Signs 01/26/22 01/27/22 01/27/22 20:08 01:49 04:44 Temperature 98.7 F 97.7 F Pulse Rate 67 73 Respiratory 18 15 15 Rate Blood Pressure 113/56 Blood Pressure 133/70 [Left] O2 Sat by Pulse 99 95 100 Oximetry 01/27/22 04:46 Temperature 99.0 F Pulse Rate 88 Respiratory 15 Rate Blood Pressure 131/74 Blood Pressure [Left] O2 Sat by Pulse 100 Oximetry ED Medical Decision Making - Radiology Data Radiology results: report reviewed, image reviewed [facility] [address] [place] [address] XRay Report Signed Patient: ALLYSON MUIR MR#: [id number] : 1970 Acct:[id number] Age/Sex: 51 / F ADM Date: 01/26/22 Loc: ED Attending Dr: Ordering Physician: MICHELL CHRISTOPHER Date of Service: 01/27/22 Procedure(s): XR chest routine 2V Accession Number(s): [id number] cc: MICHELL CHRISTOPHER Fluoro Time In Minutes: CHEST 2 VIEWS INDICATION: fever, chills. COMPARISON: None. FINDINGS: Support devices: None. Heart: Within normal limits. Lungs/Pleura: No acute air space or interstitial disease. No significant pleural effusion. IMPRESSION: No acute findings. Signer Name: Adan Rocha MD Signed: 01/27/2022 2:30 AM Workstation Name: [id number] Transcribed By: ES Dictated By: Adan Rocha MD Electronically Authenticated By: Adan Rocha MD Signed Date/Time: 01/27/22229 DD/ 8 TD/TT: - Medical Decision Making This is a 51-year-old -[place] female with a history of chronic uterine fibroids who presents to the ED with complaint of acute onset persistent diffuse body aches and pains, nasal congestion, mild dry cough for the last 2 days. Patient also complains of intermittent subjective fever and chills for which she has been taking [id number] antipyretics. Patient states that the last time she took antipyretic was 2 hours prior to arrival in the ED. Patient states that no one else at home is had similar symptoms. In the ED, patient is alert and oriented x3 and is not in any distress. Chest x-ray showed no acute cardiopulmonary abnormalities or pneumonitis. Rapid influenza test was negative. - Differential Diagnosis UTI; URI; viral syndrome; pneumonia; bronchitis; Critical care attestation.: If time is entered above; I have spent that time in minutes in the direct care of this critically ill patient, excluding procedure time. ED Disposition Clinical Impression: Nonspecific syndrome suggestive of viral illness, Fever and chills, Flu-like symptoms Disposition: HOME / SELF CARE / HOMELESS Is pt being admited?: No Does the pt Need Aspirin: No Condition: Stable Instructions: Viral Respiratory Infection, Hetp-Lv-Fixz, Fever, Adult, [id number] Additional Instructions: Chest x-ray showed no acute cardiopulmonary abnormalities or pneumonitis. Rapid influenza test was negative. Therefore take [id number] medications for fever and pain such as ibuprofen or Tylenol as needed with food, drink plenty of fluids, ensure that you obtain a COVID-19 diagnostic test in any of the outpatient facilities and if positive self quarantine for 5 days. Follow-up with your primary care physician in 5 to 7 days for reevaluation or return to the ED immediately if symptoms get worse. Prescriptions: Acetaminophen [Tylenol] 500 mg PO Q6HR PRN #30 tablet PRN Reason: Fever and pain Referrals: [facility] [Provider Group] - 7-10 days Forms: Work/School Release Form(ED) Time of Disposition: 05:11 Print Language: UKRAINIAN
[2022-01-27 05:14] LABS: Calcium Oxalate Crystals,Urine 2+; Mucus,Urine FEW /HPF
[2022-01-27 05:55] VITALS: BP 123/73
== END 2022-01-27 05:56 | disposition home or self-care (01) ==
LOC: ED 19:50
DX: R50.9 Fever, unspecified (principal); B34.9 Viral infection, unspecified; J11.1 Influenza due to unidentified influenza virus with other respiratory manifestations; F17.200 Nicotine dependence, unspecified, uncomplicated; Z88.6 Allergy status to analgesic agent; Z91.09 Other allergy status, other than to drugs and biological substances; Z79.899 Other long term (current) drug therapy
CPT/HCPCS: 71046; 81001; 99284; 87502

== ENCOUNTER 2022-02-03 20:50 | Emergency (ER) | payer SELFPAY ==
[2022-02-04 04:42] LABS: Basophils % (Auto) 0.7 % (0.0-1.8); Eosinophils # (Auto) 0.1 K/mm3 (0.0-0.4); Eosinophils % (Auto) 3.5 % (0.0-4.3); Hematocrit 38.4 % (30.3-42.9); Hemoglobin 12.4 gm/dl (10.1-14.3); Lymphocytes # (Auto) 1.4 K/mm3 (1.2-5.4); Lymphocytes % (Auto) 46.2 % (13.4-35.0); Mean Corpuscular HGB Conc 32 % (30-34); Mean Corpuscular Volume 89 fl (79-97); Monocytes # (Auto) 0.3 K/mm3 (0.0-0.8); Monocytes % (Auto) 8.6 % (0.0-7.3); Platelet Count 181 K/mm3 (140-440); Red Cell Distribution Width 15.3 % (13.2-15.2)
[2022-02-04 05:01] LABS: Alanine Aminotransferase 10 units/L (7-56); Albumin 4.3 g/dL (3.9-5); Blood Urea Nitrogen 17 mg/dL (7-17); Hemolysis Index 14
[2022-02-04 05:02] LABS: BUN/Creatinine Ratio 24; Bilirubin,Direct < 0.2 mg/dL (0-0.2)
[2022-02-04 05:46] LABS: Bilirubin,Urine NEG (Negative); Blood,Urine NEG (Negative); Color,Urine Yellow (Yellow); Protein,Urine <15 mg/dL mg/dL (Negative); Urobilinogen,Urine < 2.0 mg/dL (<2.0)
[2022-02-04 05:50] LABS: Bacteria,Urine 1+ /HPF (Negative); Mucus,Urine 2+ /HPF
--- NOTE | 2022-02-04 06:43 | Emergency Department Report ---
ED Abdominal Pain HPI - General Chief Complaint: Abdominal Pain Stated Complaint: HEADACHE,DIZZINESS Time Seen by Provider: 02/04/22 03:58 Source: patient Mode of arrival: Ambulatory Limitations: No Limitations - History of Present Illness MD Complaint: abdominal pain -: Gradual Location: diffuse Radiation: none Migration to: no migration Severity: mild, moderate Consistency: constant Improves With: nothing Worsens With: nothing Associated Symptoms: denies other symptoms - Related Data Previous Rx's Medication Instructions Recorded Last Taken Type Docusate Sodium [Colace] 100 mg PO BID PRN #30 capsule 06/02/17 Unknown Rx Ferrous Sulfate [Feosol 325 MG tab] 325 mg PO TID #60 tablet 06/02/17 Unknown Rx Sulfamethoxazole/Trimethoprim 1 each PO Q12H #20 tab 12/05/21 Unknown Rx [Bactrim DS TAB] Acetaminophen [Acetaminophen TAB] 500 mg PO Q6HR PRN #24 tablet 12/08/21 Unknown Rx Metoclopramide [Reglan] 10 mg PO TID #1 tab 12/08/21 Unknown Rx diphenhydrAMINE [Benadryl CAP] 25 mg PO Q8HR PRN #30 capsule 12/08/21 Unknown Rx clindamycin HCL [Clindamycin cap] 75 mg PO TID #21 cap 01/16/22 Unknown Rx Acetaminophen [Tylenol] 500 mg PO Q6HR PRN #30 tablet 01/27/22 Unknown Rx Hyoscyamine Subl [Levsin Sl 0.125 0.125 mg SL Q6HR PRN #30 tablet 02/04/22 Unknown Rx TAB] Allergies Allergy/AdvReac Type Severity Reaction Status Date / Time cephalexin [From Keflex] Allergy Unknown Verified 12/10/21 03:26 doxycycline Allergy Dizziness Verified 12/28/21 20:26 aspirin AdvReac Hives Verified 12/06/21 23:19 codeine AdvReac Unknown Verified 12/06/21 23:19 ED Review of Systems ROS: Stated complaint: HEADACHE,DIZZINESS Other details as noted in HPI Comment: All other systems reviewed and negative ED Past Medical Hx - Past Medical History Previous Medical History?: Yes Additional medical history: fibroids - Surgical History Past Surgical History?: Yes Additional Surgical History: Fibroidectomy - Social History Smoking Status: Current Every Day Smoker Substance Use Type: None - Medications Home Medications: Home Medications Medication Instructions Recorded Confirmed Last Taken Type Docusate Sodium [Colace] 100 mg PO BID PRN #30 capsule 06/02/17 Unknown Rx Ferrous Sulfate [Feosol 325 MG tab] 325 mg PO TID #60 tablet 06/02/17 Unknown Rx Sulfamethoxazole/Trimethoprim 1 each PO Q12H #20 tab 12/05/21 Unknown Rx [Bactrim DS TAB] Acetaminophen [Acetaminophen TAB] 500 mg PO Q6HR PRN #24 tablet 12/08/21 Unknown Rx Metoclopramide [Reglan] 10 mg PO TID #1 tab 12/08/21 Unknown Rx diphenhydrAMINE [Benadryl CAP] 25 mg PO Q8HR PRN #30 capsule 12/08/21 Unknown Rx clindamycin HCL [Clindamycin cap] 75 mg PO TID #21 cap 01/16/22 Unknown Rx Acetaminophen [Tylenol] 500 mg PO Q6HR PRN #30 tablet 01/27/22 Unknown Rx Hyoscyamine Subl [Levsin Sl 0.125 0.125 mg SL Q6HR PRN #30 tablet 02/04/22 Unknown Rx TAB] ED Physical Exam - General Limitations: No Limitations General appearance: alert, in no apparent distress - Head Head exam: Present: atraumatic, normocephalic - Eye Eye exam: Present: normal appearance - ENT ENT exam: Present: mucous membranes moist - Neck Neck exam: Present: normal inspection - Respiratory Respiratory exam: Present: normal lung sounds bilaterally. Absent: respiratory distress - Cardiovascular Cardiovascular Exam: Present: regular rate, normal rhythm. Absent: systolic murmur, diastolic murmur, rubs, gallop - GI/Abdominal GI/Abdominal exam: Present: soft, tenderness, normal bowel sounds, other (No Rovsing, no Clark Abdi, no Mekhi sign). Absent: guarding, rebound, rigid, hyperactive bowel sounds, organomegaly, mass, bruit, pulsatile mass, hernia - Extremities Exam Extremities exam: Present: normal inspection - Back Exam Back exam: Present: normal inspection - Neurological Exam Neurological exam: Present: alert, oriented X3 - Psychiatric Psychiatric exam: Present: normal affect, normal mood - Skin Skin exam: Present: warm, dry, intact, normal color. Absent: rash ED Course Vital Signs 02/03/22 02/04/22 21:18 06:19 Temperature 98.4 F Pulse Rate 59 L Respiratory 18 Rate Blood Pressure 96/59 O2 Sat by Pulse 98 98 Oximetry ED Medical Decision Making - Lab Data Result diagrams: 02/04/22 04:20 02/04/22 04:20 Critical care attestation.: If time is entered above; I have spent that time in minutes in the direct care of this critically ill patient, excluding procedure time. ED Disposition Clinical Impression: Abdominal pain Disposition: HOME / SELF CARE / HOMELESS Is pt being admited?: No Does the pt Need Aspirin: No Condition: Stable Instructions: Abdominal Pain, Adult, Abdominal Pain (ED) Additional Instructions: You have been evaluated emergency department today for abdominal pain. Your evaluation did not show evidence of any medical conditions requiring emergent intervention at this time. Your lipase was it was elevated but not to a significant degree significant pancreatitis does not appear to be present at this time please drink plenty of fluids. Please schedule an appointment with your primary care physician. Return to emergency department if you experience worsening uncontrolled pain, fevers of 100.4 or greater, recurrent vomiting, inability to tolerate food or fluids by mouth, bloody stools or vomit, black tarry stools, or any other concerning symptoms. Prescriptions: Hyoscyamine Subl [Levsin Sl 0.125 TAB] 0.125 mg SL Q6HR PRN #30 tablet PRN Reason: Spasms Referrals: [facility] [Provider Group] - 3-5 Days [facility] [Provider Group] - 3-5 Days
[2022-02-04 06:57] VITALS: BP 138/70
== END 2022-02-04 07:37 | disposition home or self-care (01) ==
LOC: ED 20:50
DX: R10.9 Unspecified abdominal pain (principal); F17.200 Nicotine dependence, unspecified, uncomplicated; Z88.6 Allergy status to analgesic agent; Z88.8 Allergy status to other drugs, medicaments and biological substances
CPT/HCPCS: 36415; 80048; 80076; 81001; 83690; 85025; 99283

== ENCOUNTER 2022-02-18 21:35 | Emergency (ER) | payer SELFPAY ==
[2022-02-18 23:46] VITALS: BP 101/61
[2022-02-19 01:37] LABS: Basophils % (Auto) 0.7 % (0.0-1.8); Eosinophils # (Auto) 0.1 K/mm3 (0.0-0.4); Eosinophils % (Auto) 1.8 % (0.0-4.3); Hematocrit 37.8 % (30.3-42.9); Hemoglobin 12.5 gm/dl (10.1-14.3); Lymphocytes # (Auto) 1.7 K/mm3 (1.2-5.4); Lymphocytes % (Auto) 44.6 % (13.4-35.0); Mean Corpuscular HGB Conc 33 % (30-34); Mean Corpuscular Volume 88 fl (79-97); Monocytes # (Auto) 0.3 K/mm3 (0.0-0.8); Monocytes % (Auto) 8.2 % (0.0-7.3); Platelet Count 182 K/mm3 (140-440); Red Blood Count 4.32 M/mm3 (3.65-5.03); Red Cell Distribution Width 15.2 % (13.2-15.2)
[2022-02-19 02:03] LABS: Alanine Aminotransferase 10 units/L (7-56); Albumin 4.5 g/dL (3.9-5); BUN/Creatinine Ratio 19; Blood Urea Nitrogen 15 mg/dL (7-17); Hemolysis Index 4
== END 2022-02-19 06:40 | disposition left against medical advice (07) ==
LOC: ED 21:35
DX: R51.9 Headache, unspecified (principal); Z53.21 Procedure and treatment not carried out due to patient leaving prior to being seen by health care provider
CPT/HCPCS: 36415; 80053; 85025